=== PATIENT | male | born 1960 | race American Indian/Alaskan Native ===

== ENCOUNTER 2016-07-11 09:53 | Day surgery (SDC) | payer BC ==
[~2016-07-11 09:53] MED LIST: QUELICIN ONE
--- NOTE | 2016-07-11 11:00 | Anesthesia Consultation ---
Anesthesia Consult and Med Hx Date of service: 07/11/16 (Scheduled for lap hernia repair with Dr. Gomez) - Airway Anesthetic Teeth Evaluation: Bridges (Upper and lower. Upper left molar temporary crown.) ROM Head & Neck: Adequate Mental/Hyoid Distance: Adequate Mallampati Class: Class III Intubation Access Assessment: Possibly Difficult - Pulmonary Exam CTA: Yes - Cardiac Exam Cardiac Exam: RRR - Pre-Operative Health Status ASA Pre-Surgery Classification: ASA2 Proposed Anesthetic Plan: General - Pre-Anesthesia Comment Pre-Anesthesia Comments: No previous anesthesia complications. NPO after midnight. - Pulmonary Hx Smoking: No Hx Asthma: No Hx Sleep Apnea: Yes (10 YRS ) - Cardiovascular System Hx Hypertension: Yes (10 - 15 YRS) Hx Coronary Artery Disease: No Hx Heart Attack/AMI: No - Central Nervous System Hx Seizures: No - Gastrointestinal Hx Gastroesophageal Reflux Disease: No - Endocrine Hx Renal Disease: Yes (Mild renal insufficiency) Hx Non-Insulin Dependent Diabetes: No Hx Thyroid Disease: No - Other Systems Hx Obesity: No
[2016-07-11] MEDS ORDERED: VERSED IV NR (12:00)
[2016-07-11] MEDS ORDERED: PEPCID IV NR (12:00)
[2016-07-11] MEDS ORDERED: LACTATED RINGERS 1,000 ML IV SCH (12:00)
[2016-07-11] MEDS ORDERED: ZOFRAN IV PRN (13:50)
[2016-07-11] MEDS ORDERED: NORCO 5/325 PO PRN (13:50)
--- NOTE | 2016-07-11 14:33 | Admit Criteria Form ---
Admission Criteria Documentation: AMBULATORY SURGERY EXCEPTION CRITERIA Ambulatory Surgery Exception Criteria ( Place 'X' for any and all applicable criteria): Surgery or procedure performed on ambulatory basis may require inpatient stay for[A] ANY ONE of the following(1)(2)(3)(4)(5)(6)(7)(8)(9): [X] I. A preoperative situation, condition, or finding that warrants inpatient stay as indicated by ANY ONE of the following: [] a) Inpatient care needed because of severity of a disease or condition rather than the surgery (eg, severe cardiac or respiratory disease, severe infection) (15) (16 ) (17) (18) [] b) Emergent procedure (eg, angioplasty for acute ischemia)(19) [] c) Complex surgical approach or situation as indicated by ANY ONE of the following(3): [] i) Open approach needed instead of usual endoscopic, transcatheter, or other less invasive procedure [] ii) Difficult approach because of previous operation [] iii) Airway monitoring required after open neck procedures(20)(21) [] iv) Large mass requiring unusually extensive dissection [] v) Additional complicating feature requiring inpatient care (eg, drain management)(22(23): [X] d) Major surgery in a pt with high anesthetic risk as indicated by ANY ONE of the following (2)(3)(5)(7)(8): [] i) ASA risk class III or higher (severe systemic disease impairing function) [D] [] ii) Advanced age (eg, older than 85 years)(14)(24) [] iii) Symptomatic heart failure(25) [] iv) Symptomatic asthma or COPD(8)(21) [] v) Morbid obesity with hemodynamic or respiratory problems(20)( 21)(26)(27) [X] vi) Obstructive sleep apnea(20)(21) [] vii) Former premature infants who are younger than 60 weeks [] viii) High risk for severe postoperative abnormalities (eg, severe postoperative hypocalcemia after parathyroidectomy for severe hyperparathyroidism)(27)( 28) [] ix) Unstable angina(25) [] e) Drug-related risk requiring inpatient stay as indicated by ANY ONE of the following(5)(10)(14)(32)(33) [] i) Procedure requires discontinuing drugs or other therapy (eg , antiarrhythmic medication, antiseizure medication), which necessitates inpatient observation or treatment.(18)(31) [] ii) Major surgery and high risk drug use as indicated by ANY ONE of the following: [] 1) Active abuse of cocaine or similar drug [] 2) Monoamine oxidase inhibitor use [] 3) Other drug identified as posing risk [] f) Inadequate outpatient care situation as indicated by ANY ONE of the following(5)(10)(14)(32)(33) [] i) Patient lives remote from medical facility and procedure has urgent complication potential, and temporary nearby residence cannot be arranged [] ii) Patient will have postprocedure incapacitation and inadequate assistance at home, or alternative level of care cannot be arranged. [] iii) Patient will have long general anesthesia or procedure side effect resolution time, and competent person to stay with patient on first postoperative night at home or alternative level of care cannot be arranged. []iv) Other inadequate outpatient situation that cannot be handled by other means [] II. A perioperative event, condition, or finding that warrants inpatient stay as indicated by ANY ONE of the following (1)(2)(3): [] a) Inadequate physiologic recovery: cardiovascular, respiratory, or hemodynamic status not normal or near preoperative baseline(18) [] b) Hemodynamic instability [] c) Patient not alert with near normal or baseline mental status [] d) Temperature not normal or as expected and not appropriate for outpatient treatment of condition [] e) Ambulatory or appropriate activity level status not yet achieved post procedure [E](34)(35)(36) [] f) Operative site not appropriate (eg, unexpected or excessive drainage or bleeding) [] g) Postoperative effects not resolved or adequately managed (eg, significant pain or vomiting not appropriate for outpatient or next level of care)(10)(12) [] h) Complicating features requiring inpatient care as indicated by ANY ONE of the following(37): [] i) Severe complications of procedure (eg, bowel injury, airway compromise, vascular injury,severe hemorrhage) [] ii) Extensive (eg, dissection far beyond usual scope of procedure ) or prolonged (eg, 120 minutes beyond usual) surgery needed requiring inpatient postoperative care [] iii) Conversion to an open or complex procedure that requires inpatient care (eg, open vs laparoscopic cholecystectomy, abdominal vs vaginal hysterectomy)(38) [] iv) Comorbid condition or test result identified during or post procedure that requires inpatient care (7) [] v) Malignant hyperthermia(30) [] vi) Other complicating feature requiring inpatient care(22)(23) Inpatient stay may be needed until ALL of the following are present (1)(2)(3)(4) (5)(6)(10)(14)(33)(40): []a) Physiologic recovery: cardiovascular, respiratory, and hemodynamic status normal or near preoperative baseline []b) Hemodynamic stability []c) Patient alert, with near normal or baseline mental status []d) Temperature appropriate: patient afebrile or temperature appropriate for outpt treatment of condition []e) Activity level appropriate: ambulatory or appropriate activity level post procedure []f) Operative site appropriate as indicated by ALL of the following: []i) Site dry or with expected drainage []ii) Any blood noted is as expected for procedure. []g) Postoperative effects resolved or managed as indicated by ALL of the following: []i) Pain management appropriate for outpatient (or next level of) care(10) []ii) Minimal nausea and vomiting: if present, successfully treated with oral medication(12) []iii) Headache, dizziness, or drowsiness (if present) are mild. []h) Voiding status acceptable as indicated by ANY ONE of the following: []i) Voiding spontaneously []ii) No voiding but instructions given for follow-up in 6 to 8 hours []iii) Urinary catheter in place, and instructions given for follow-up []i) Complicating features requiring inpatient care manageable at a lower level of care(37) []j) Comorbid conditions manageable at a lower level of care(37) The original [employer] content created by [employer] has been revised. The portions of the content which have been revised are identified through the use of italic text or in bold, and [facility] [employer] has neither reviewed nor approved the modified material. All other unmodified content is copyright [employer]. Please see references footnoted in the original [employer] edition 2016 Admission Criteria Met: Yes
[2016-07-11] MEDS ORDERED: ANCEF/STERILE WATER 2 GM/20 ML IV NR (15:00)
[2016-07-11] MEDS ORDERED: FLAGYL 500 MG/100 ML 500 MG/100 ML BAG IV NR (15:00)
[2016-07-11] MEDS ORDERED: NACL 0.9% 1000 ML 1,000 ML IV SCH (16:00)
[2016-07-11] MEDS ORDERED: SUBLIMAZE ONE (16:54)
[2016-07-11] MEDS ORDERED: ZEMURON IV ONE (16:54)
[2016-07-11] MEDS ORDERED: XYLOCAINE MPF 2% ONE (16:54)
[2016-07-11] MEDS ORDERED: DIPRIVAN 10 MG/ML IV ONE (16:54)
[2016-07-11] MEDS ORDERED: DECADRON ONE (16:57)
[2016-07-11] MEDS ORDERED: ZOFRAN ONE (16:57)
[2016-07-11] MEDS ORDERED: MORPHINE IV PRN ×2 (17:05)
--- NOTE | 2016-07-11 17:06 | Anesthesia Day of Surgery ---
Anesthesia Day of Surgery - Day of Surgery Patient Examined: Yes Patient H&P Reviewed: Yes Patient is NPO: Yes
[2016-07-11] MEDS ORDERED: ePHEDrine SULFATE ONE (17:26)
[2016-07-11] MEDS ORDERED: NACL 0.9% 1000 ML 1,000 ML ONE (17:53)
[2016-07-11] MEDS ORDERED: MARCAINE 0.5% INFILTRATI ONE (18:18)
[2016-07-11] MEDS ORDERED: NACL 0.9% IR ONE (18:19)
[2016-07-11] MEDS ORDERED: BLOXIVERZ ONE (18:29)
[2016-07-11] MEDS ORDERED: ROBINUL ONE (18:29)
--- NOTE | 2016-07-11 18:53 | Discharge Summary ---
Providers - Providers Date of Admission: 07/11/2016 Date of discharge: 07/11/16 Attending physician: JAJA MEDINA Primary care physician: EBONI PLEITEZ Hospitalization Condition: Good Procedures: Lap ventral hernia repair Disposition: DISCHARGED TO HOME OR SELFCARE - Discharge Diagnoses (1) Ventral hernia without obstruction or gangrene Status: Acute Core Measure Documentation - Palliative Care Palliative Care/ Comfort Measures: Not Applicable - Core Measures Any of the following diagnoses?: none Exam - Constitutional Vitals: Temp Pulse Resp BP Pulse Ox 98.2 F 54 L 22 152/96 96 07/11/16 10:15 07/11/16 10:15 07/11/16 10:15 07/11/16 10:15 07/11/16 10:15 General appearance: Present: no acute distress, well-nourished - EENT Eyes: Present: PERRL, EOM intact ENT: hearing intact, clear oral mucosa, dentition normal - Neck Neck: Present: supple, normal ROM - Respiratory Respiratory effort: normal Respiratory: bilateral: CTA - Cardiovascular Rhythm: regular - Extremities Extremities: no ischemia, No edema Peripheral Pulses: within normal limits - Abdominal General gastrointestinal: Present: soft, non-tender, normal bowel sounds Male genitourinary: Present: normal - Rectal Rectal Exam: deferred - Integumentary Integumentary: Present: clear, warm, dry - Musculoskeletal Musculoskeletal: strength equal bilaterally - Psychiatric Psychiatric: appropriate mood/affect Plan Activity: no restrictions Diet: low fat, clear liquids Wound: keep clean and dry Special Instructions: no heavy lifting Follow up with: JAJA MEDINA MD [Staff Physician] - 7 Days
[2016-07-11] MEDS: DILAUDID IV PRN ×6 (19:14→20:14)
[2016-07-11] MEDS ORDERED: TORADOL IV PRN (19:55)
[2016-07-11 21:21] VITALS: BP 118/70
--- NOTE | 2016-07-12 02:35 | Operative Report ---
ATTENDING SURGEON: Bruce Gomez MD ASSISTANTS: 1. Dakota White MD 2. Connor Tran. PREOPERATIVE DIAGNOSES: Ventral incisional hernia and periumbilical skin lesion. POSTOPERATIVE DIAGNOSES: Ventral incisional hernia and periumbilical skin lesion. OPERATION PERFORMED: Periumbilical skin lesion removal and ventral incisional hernia repair laparoscopically. INDICATIONS FOR OPERATIVE PROCEDURE: The patient is a 56-year-old male known to our service who came with incisional hernia complaints. After discussing risks and benefits of the procedure, he has had a consent for it. DESCRIPTION OF PROCEDURE: The patient was brought to the operating room and placed on the operating table in supine position. General endotracheal tube anesthesia was given by the anesthesia team. The patient was prepped and draped in a standard fashion. A time-out was called, the patient and procedure were correct. So, we proceeded to access the abdominal cavity with a Veress needle in the left upper quadrant, insufflated up to 15 mmHg. Then, we proceeded to use the Optiview technique to access the abdominal cavity through a 5 mm port in the right upper quadrant and then 2 subsequent 5 mm trocars in the right flank and right lower quadrant. After doing this, we proceeded to do an extensive lysis of adhesions using the LigaSure from small bowel adhesions, freeing out the area around the incisional hernia. When that was freed out, we proceeded to remove the periumbilical skin lesion by using a 15 blade to excise it and then closed it primarily with 4-0 Monocryl. Then, we proceed to do a periumbilical semi circular incision to dissect the hernia sac. When that was done, we proceeded to insert an [address] mesh in the abdominal cavity with a previously placed stitch in the center of that mesh. Then, we closed the hernia primarily using #1 PDS. After doing this, we reinsufflated the abdomen and using Adam-Damon, we retrieved the previously placed stitch in the center of the mesh and secured it against the abdominal wall using a Chayo clamp. Then, using the Bard absorbable tacker, we proceeded to tack the mesh circumferentially in 2 concentric rows of tacks. After doing this, we reduced pneumoperitoneum and removed all trocars. Then we closed all the incision with 4-0 Monocryl. The patient tolerated very well the procedure, was sent to recovery room extubated. DISPOSITION: Home. The attending Dr. Gomez was scrubbed throughout the entire procedure. Instrument and lap count was correct x 2. JOB# [id number] ASHELY/EN LESLIE
== END 2016-07-11 21:00 | disposition home or self-care (01) ==
LOC: OR 09:53
PROVIDERS: ATTEND Specialist
DX: K43.2 Incisional hernia without obstruction or gangrene (principal); L98.8 Other specified disorders of the skin and subcutaneous tissue; I10 Essential (primary) hypertension; K21.9 Gastro-esophageal reflux disease without esophagitis; G47.33 Obstructive sleep apnea (adult) (pediatric); Z90.49 Acquired absence of other specified parts of digestive tract; Z98.84 Bariatric surgery status; Z87.891 Personal history of nicotine dependence; Z82.49 Family history of ischemic heart disease and other diseases of the circulatory system
CPT/HCPCS: 11400; 49654; C1781; J0330; J0690; J1100; J1170; J1885; J2250; J2405; J2704; J2710; J3010; J7030; J7120